=== PATIENT | female | born 1970 | race Caucasian/White ===

== ENCOUNTER 2017-10-01 19:32 | Emergency (ER) | payer BC ==
[~2017-10-01] VITALS: Ht 172.7 cm; Wt 70.3 kg
[~2017-10-01 19:32] MED LIST: NITR-65 PO; PHEN200T27 PO
[2017-10-01] MEDS ORDERED: TOPI50TA37 PO (19:56)
[2017-10-01] MEDS ORDERED: PHEN-483 PO (19:56)
[2017-10-01] MEDS ORDERED: LACTATED RINGERS 1,000 ML IV ONE (20:03)
[2017-10-01 20:24] LABS: BASOPHILS # (AUTO) 0.1 10^3/uL (0.0-0.1); BASOPHILS % (AUTO) 1 % (0-10); EOSINOPHILS # (AUTO) 0.2 10^3/uL (0.0-0.3); EOSINOPHILS % (AUTO) 2 % (0-10); HEMATOCRIT 39 % (35-52); HEMOGLOBIN 13.6 G/DL (11.5-16.0); LYMPHOCYTES # (AUTO) 2.8 X 10^3 (1.0-4.0); LYMPHOCYTES % (AUTO) 33 % (12-44); MEAN CORPUSCULAR HEMOGLOBIN 29 PG (25-34); MEAN CORPUSCULAR HGB CONC 35 G/DL (32-36); MEAN CORPUSCULAR VOLUME 84 FL (80-99); MEAN PLATELET VOLUME 10.8 FL (7.4-10.4); MONOCYTES # (AUTO) 0.7 X 10^3 (0.0-1.0); MONOCYTES % (AUTO) 8 % (0-12); NEUTROPHILS # (AUTO) 4.8 X 10^3 (1.8-7.8); NEUTROPHILS % (AUTO) 56 % (42-75); PLATELET COUNT 388 10^3/uL (130-400); RED BLOOD COUNT 4.67 10^6/uL (4.35-5.85); WHITE BLOOD COUNT 8.7 10^3/uL (4.3-11.0)
[2017-10-01 20:34] LABS: INR 1.1 (0.8-1.4); PROTHROMBIN TIME PATIENT 14.3 SEC (12.2-14.7)
[2017-10-01 20:45] LABS: ALANINE AMINOTRANSFERASE 10 U/L (0-55); ALBUMIN 4.4 GM/DL (3.2-4.5); ALKALINE PHOSPHATASE 66 U/L (40-136); BILIRUBIN,TOTAL 0.4 MG/DL (0.1-1.0); BUN/CREATININE RATIO 15; CALCIUM 9.4 MG/DL (8.5-10.1); CARBON DIOXIDE 20 MMOL/L (21-32); CHLORIDE 110 MMOL/L (98-107); GFR ESTIMATED 54; GLUCOSE 101 MG/DL (70-105); MAGNESIUM 2.4 MG/DL (1.8-2.4); POTASSIUM 3.4 MMOL/L (3.6-5.0); SODIUM 140 MMOL/L (135-145); TOTAL PROTEIN 7.3 GM/DL (6.4-8.2)
[2017-10-01 20:51] LABS: BILIRUBIN,URINE NEGATIVE (NEGATIVE); CLARITY,URINE CLEAR; COLOR,URINE YELLOW; GLUCOSE, URINE (UA) NEGATIVE (NEGATIVE); KETONES,URINE NEGATIVE (NEGATIVE); LEUKOCYTE ESTERASE ,URINE NEGATIVE (NEGATIVE); NITRITE,URINE NEGATIVE (NEGATIVE); PH,URINE 6 (5-9); PROTEIN,URINE NEGATIVE (NEGATIVE); UROBILINOGEN,URINE NORMAL (NORMAL)
[2017-10-01 20:58] LABS: RBC,URINE 0-2 /HPF
--- NOTE | 2017-10-01 21:14 | ED General ---
General Chief Complaint: General Problems/Pain Stated Complaint: DOESN'T FEEL RIGHT/POSSIBLE RX REACTION Nursing Triage Note: PT PRESENTS TO ER WITH COMPLAINT OF MALAISE, THROAT DISCOMFORT, AND SOA. STATES SHE STARTED TAKING TOPAMAX IN AUGUST FOR HEADAHCES. STATES THE TOPAMAX HAS NOT MADE HER FEEL WELL, AND IS NOW WEANING HERSELF OFF. PT ALSO STARTED TAKING PHENTERMINE IN JUNE. Nursing Sepsis Screen: No Definite Risk Source of Information: Patient History of Present Illness Date Seen by Provider: Oct 01, 2017 Time Seen by Provider: 19:50 Initial Comments PT ARRIVES VIA POV FROM HOME STATES SHE IS "NOT FEELING WELL" "DON'T FEEL LIKE MYSELF" STATES SHE "FEELS BENSON FUZZY" "FEEL FOGGY HEADED" "KEEP FORGETTING THINGS" PT WAS STARTED ON PHENTERMINE BY DR. TRACE BENNETT IN [facility], IN JUNE, FOR WEIGHT LOSS. WAS NOT HAVING ANY PROBLEMS WITH IT HAS CHRONIC HEADACHES AND HAVE GOTTEN MORE FREQUENT RECENTLY--REPEATS SEVERAL TIMES SHE IS "UNDER ALOT OF STRESS" AND HAS ALOT OF TENSION HEADACHES--NORMALLY HAS 1 HEADACHE A MONTH STATES SHE WAS STARTED ON TOPAMAX BY DR. BENNETT 7 WEEKS AGO FOR HER HEADACHES-- WAS PRESCRIBED 50 MG BID, BUT SHE STARTED HERSELF OUT TAKING 50 MG AT BEDTIME FOR A MONTH, THEN 2 WEEKS AGO, SHE SELF-ADDED 1/2 PILL IN THE MORNING. PT STATES "IT GOT WORSE" "NOT FEELING WELL" --VAGUE SYMPTOMS OF "FEELING FOGGY HEADED". 1 1/2 WEEKS AGO, SHE CUT HERSELF BACK DOWN TO JUST TAKING THE PM DOSE, AND 3 DAYS AGO, SHE CUT HERSELF DOWN TO 1/2 PILL AT BEDTIME STATES IT WAS CAUSING HER TO HAVE TINGLING IN HER HANDS AND FEET, WHICH WENT AWAY AFTER A MONTH STATES THIS MORNING SHE "DIDN'T FEEL WELL" STATES HER THROAT FELT DRY--"MAY BE DEHYDRATED" AND "FEELING FUZZY" --UNABLE TO GIVE ANY OTHER SPECIFIC SYMPTOMS THEN STATES SHE STARTED HAVING ANXIETY AND "IT FREAKED ME OUT" NO CHEST PAIN NO SHORTNESS OF BREATH NOW, BUT EARLIER THOUGHT SHE FELT SLIGHTLY SHORT OF BREATH NO HEADACHE NOW, BUT HAD A MILD HEADACHE EARLIER TODAY, AND TOOK AN EXCEDRIN AROUND 1300 AND HEADACHE WENT AWAY NO VISION CHANGES NO PARESTHESIAS OR MOTOR DEFICITS NO PALPITATIONS NO NAUSEA/VOMITING NO SWEATS PT STATES SHE HAS NOT HAD ANY CAFFEINE FOR SEVERAL WEEKS. THESE SYMPTOMS ARE NO DIFFERENT TONIGHT PCP: DR. CHARLES--HAS NOT SEEN HIM IN A LONG TIME, AND HAS NOT DISCUSSED ANY OF THESE ISSUES WITH HIM OR WITH DR. BENNETT . [facility]--WEIGHT LOSS Allergies and Home Medications Allergies Coded Allergies: Bee Pollens (Unverified Allergy, Mild, 12/30/08) Shellfish (Unverified Allergy, Mild, 12/30/08) fish oil (Unverified Allergy, Mild, 12/30/08) latex (Unverified Allergy, Mild, 12/30/08) Patient Home Medication List Home Medication List Reviewed: Yes Review of Systems Constitutional: see HPI EENTM: no symptoms reported Respiratory: see HPI Cardiovascular: no symptoms reported Gastrointestinal: no symptoms reported Genitourinary: no symptoms reported : No LMP: Oct 01, 2017 Musculoskeletal: no symptoms reported Skin: no symptoms reported Psychiatric/Neurological: See HPI Hematologic/Lymphatic: No Symptoms Reported Immunological/Allergic: no symptoms reported Past Woxtjfj-Acshsa-Lkyroz Hx Patient Social History Alcohol Use: Denies Use Recreational Drug Use: No Smoking Status: Former Smoker Recent Foreign Travel: No Contact w/Someone Who Travel: No Recent Infectious Disease Expo: No Recent Hopitalizations: No Immunizations Up To Date PED Vaccines UTD: Yes Seasonal Allergies Seasonal Allergies: No Past Medical History Surgeries: Yes (BREAST AUGMENTATION) Breast, Section, Tubal Ligation Respiratory: No Cardiac: No Neurological: No : No 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 Genitourinary: No Gastrointestinal: No Musculoskeletal: No Endocrine: No HEENT: No Cancer: No Psychosocial: No Integumentary: No Blood Disorders: No Physical Exam Vital Signs Vital Signs - First Documented 10/01/17 19:40 Temp 98.0 Pulse 84 Resp 15 B/P (MAP) 147/94 (111) Pulse Ox 100 O2 Delivery Room Air Capillary Refill : Less Than 3 Seconds General Appearance: No Apparent Distress, WD/WN, Anxious HEENT: PERRL/EOMI Neck: Full Range of Motion, Normal Inspection, Non Tender, Supple; No Carotid Bruit, No JVD Respiratory: Normal Breath Sounds, No Accessory Muscle Use, No Respiratory Distress Cardiovascular: Regular Rate, Rhythm, No Edema, No Gallop, No JVD, No Murmur, Normal Peripheral Pulses Gastrointestinal: Normal Bowel Sounds, No Organomegaly, No Pulsatile Mass, Non Tender, Soft Back: Normal Inspection Extremity: Normal Capillary Refill, Normal Inspection, Normal Range of Motion, Non Tender, No Calf Tenderness, No Pedal Edema Neurologic/Psychiatric: Alert, Oriented x3, No Motor/Sensory Deficits, financial services sales representative II- XII Norm as Tested Skin: Normal Color, Warm/Dry, Tattoos/Piercings Progress/Results/Core Measures Suspected Sepsis Recent Fever Within 48 Hours: No Infection Criteria Present: None New/Unexplained Altered Menta: No Sepsis Screen: No Definite Risk SIRS Temperature:98.0 Pulse: 84 Respiratory Rate: 15 Laboratory Tests 10/01/17 20:10: White Blood Count 8.7 Blood Pressure 147 /94 Mean: 111 Laboratory Tests 10/01/17 20:10: Creatinine 1.10, INR Comment 1.1, Platelet Count 388, Total Bilirubin 0.4 Results/Orders Lab Results Laboratory Tests Test 10/01/17 20:10 10/01/17 20:45 Range/Units White Blood Count 8.7 4.3-11.0 10^3/uL Red Blood Count 4.67 4.35-5.85 10^6/uL Hemoglobin 13.6 11.5-16.0 G/DL Hematocrit 39 35-52 % Mean Corpuscular Volume 84 80-99 FL Mean Corpuscular Hemoglobin 29 25-34 PG Mean Corpuscular Hemoglobin Concent 35 32-36 G/DL Red Cell Distribution Width 14.0 10.0-14.5 % Platelet Count 388 130-400 10^3/uL Mean Platelet Volume 10.8 H 7.4-10.4 FL Neutrophils (%) (Auto) 56 42-75 % Lymphocytes (%) (Auto) 33 12-44 % Monocytes (%) (Auto) 8 0-12 % Eosinophils (%) (Auto) 2 0-10 % Basophils (%) (Auto) 1 0-10 % Neutrophils # (Auto) 4.8 1.8-7.8 X 10^3 Lymphocytes # (Auto) 2.8 1.0-4.0 X 10^3 Monocytes # (Auto) 0.7 0.0-1.0 X 10^3 Eosinophils # (Auto) 0.2 0.0-0.3 10^3/uL Basophils # (Auto) 0.1 0.0-0.1 10^3/uL Prothrombin Time 14.3 12.2-14.7 SEC INR Comment 1.1 0.8-1.4 Activated Partial Thromboplast Time 29 24-35 SEC Sodium Level 140 135-145 MMOL/L Potassium Level 3.4 L 3.6-5.0 MMOL/L Chloride Level 110 H 98-107 MMOL/L Carbon Dioxide Level 20 L 21-32 MMOL/L Anion Gap 10 5-14 MMOL/L Blood Urea Nitrogen 16 7-18 MG/DL Creatinine 1.10 0.60-1.30 MG/DL Estimat Glomerular Filtration Rate 54 BUN/Creatinine Ratio 15 Glucose Level 101 70-105 MG/DL Calcium Level 9.4 8.5-10.1 MG/DL Magnesium Level 2.4 1.8-2.4 MG/DL Total Bilirubin 0.4 0.1-1.0 MG/DL Aspartate Amino Transf (AST/SGOT) 11 5-34 U/L Alanine Aminotransferase (ALT/SGPT) 10 0-55 U/L Alkaline Phosphatase 66 40-136 U/L Troponin I < 0.30 <0.30 NG/ML B-Type Natriuretic Peptide 32.2 <100.0 PG/ML Total Protein 7.3 6.4-8.2 GM/DL Albumin 4.4 3.2-4.5 GM/DL TSH [place] Testing 2.70 0.35-4.94 UIU/ML Urine Color YELLOW Urine Clarity CLEAR Urine pH 6 5-9 Urine Specific [place] 1.020 1.016-1.022 Urine Protein NEGATIVE NEGATIVE Urine Glucose (UA) NEGATIVE NEGATIVE Urine Ketones NEGATIVE NEGATIVE Urine Nitrite NEGATIVE NEGATIVE Urine Bilirubin NEGATIVE NEGATIVE Urine Urobilinogen NORMAL NORMAL MG/DL Urine Leukocyte Esterase NEGATIVE NEGATIVE Urine RBC (Auto) 1+ H NEGATIVE Urine RBC 0-2 /HPF Urine WBC NONE /HPF Urine Squamous Epithelial Cells 2-5 /HPF Urine Crystals NONE /LPF Urine Bacteria NONE /HPF Urine Casts NONE /LPF Urine Mucus NEGATIVE /LPF Urine Culture Indicated NO My Orders Orders - YOANA DURAN DO Saline Lock/Iv-Start (10/01/17 20:02) Urine Bedside (10/01/17 20:02) Ekg Tracing (10/01/17 20:02) Monitor-Rhythm Ecg Trace Only (10/01/17 20:02) BNP (10/01/17 20:02) Cbc With Automated Diff (10/01/17 20:02) Comprehensive Metabolic Panel (10/01/17 20:02) Magnesium (10/01/17 20:02) Protime With Inr (10/01/17 20:02) Partial Thromboplastin Time (10/01/17 20:02) Thyroid Analyzer (10/01/17 20:02) Troponin I (10/01/17 20:02) Ua Culture If Indicated (10/01/17 20:02) Chest Pa/Lat (2 View) (10/01/17 20:02) Saline Lock/Iv-Start (10/01/17 20:03) Lactated Ringers (Lr 1000 Ml Iv Solution (10/01/17 20:03) Potassium Chloride (Tablet) (K Dur Table (10/01/17 21:15) Medications Given in ED Current Medications Medications Dose Ordered Sig/Ines Route Start Time Stop Time Status Last Admin Dose Admin Lactated Ringer's 1,000 ml @ 0 mls/hr Q0M ONCE IV 10/01/17 20:03 10/01/17 20:05 DC 10/01/17 20:16 1,000 MLS/HR Potassium Chloride 20 meq ONCE ONCE PO 10/01/17 21:15 10/01/17 21:20 DC 10/01/17 21:32 20 MEQ Vital Signs/I&O 10/01/17 10/01/17 19:40 22:00 Temp 98.0 98.0 Pulse 84 84 Resp 15 15 B/P (MAP) 147/94 (111) 135/90 (111) Pulse Ox 100 100 O2 Delivery Room Air 10/02/17 00:00 Intake Total 1000 ml Balance 1000 ml Capillary Refill : Less Than 3 Seconds Blood Pressure Mean: 111 Progress Note : Progress Note NO SYMPTOMS DURING ER STAY OFFERED TO DO CT SCAN OF HEAD AND PT DECLINES--STATES SHE HAS HAD FAIRLY EXTENSIVE WORK UP'S IN THE PAST FOR HEADACHES, AND STATES HEADACHES ARE ALL TENSION HEADACHES AND STRESS RELATED AND SHE IS UNDER ALOT OF STRESS ECG Initial ECG Impression Date: Oct 01, 2017 Initial ECG Impression Time: 20:12 Initial ECG Rate: 73 Initial ECG Rhythm: Normal Sinus Initial ECG Comparisson: No Previous ECG Available Diagnostic Imaging Comments CXR--NO ACUTE PROCESS, PER RADIOLOGIST REPORT @ 2136 Reviewed: Reviewed by Me Departure Impression Primary Impression: General medical exam Additional Impressions: MILD HYPOKALEMIA POSSIBLE ADVERSE MEDICATION REACTION Anxiety Disposition: 01 HOME, SELF-CARE Condition: Stable Departure-Patient Inst. Referrals: MAJO CHARLES MD (PCP/Family) Primary Care Physician Patient Instructions: Adverse Drug Reactions, Adult (DC), Hypokalemia (DC) Add. Discharge Instructions: TAKE YOUR MEDICATIONS PRESCRIBED FOLLOW UP WITH DR. CHARLES AND DR. BENNETT NEXT WEEK FOR FURTHER CARE All discharge instructions reviewed with patient and/or family. Voiced understanding. YOANA DURAN DO Oct 01, 2017 21:14
[2017-10-01] MEDS ORDERED: KCL 20 MEQ TAB (K-DUR) PO ONE (21:15)
--- NOTE | 2017-10-01 21:25 | Diagnostic Imaging Report ---
INDICATION: Respiratory infection PA and lateral chest Heart size and pulmonary vascularity are normal. Lungs are clear. There are no effusions or pneumothoraces. Patient has bilateral breast implants. There is scoliosis of the thoracic spine convex to the right. IMPRESSION: No acute abnormalities in the chest Dictated by: Dictated on workstation # [id number]
[2017-10-01 22:00] VITALS: BP 135/90
== END 2017-10-01 22:00 | disposition home or self-care (01) ==
LOC: EDUNIT# 19:32 → ER 19:36
DX: E87.6 Hypokalemia (principal); F41.9 Anxiety disorder, unspecified; Z87.891 Personal history of nicotine dependence; Z98.51 Tubal ligation status; Z87.59 Personal history of other complications of pregnancy, childbirth and the puerperium; Z98.890 Other specified postprocedural states; Z98.82 Breast implant status; Z91.040 Latex allergy status
CPT/HCPCS: 36415; 71046; 80053; 81000; 83735; 83880; 84443; 84484; 84703; 85025; 85610; 85730; 93005; 93041; 96360

== ENCOUNTER 2020-08-22 04:53 | Emergency (ER) | payer BC ==
[~2020-08-22] VITALS: Ht 172.7 cm; Wt 90.0 kg
[~2020-08-22 04:53] MED LIST changes: +PHEN-483 PO; +TOPI50TA37 PO
--- NOTE | 2020-08-22 05:24 | ED General ---
General Stated Complaint: RT ARM PAIN,SOB Source of Information: Patient Exam Limitations: No Limitations (MATHEUS LIRA MD) History of Present Illness Date Seen by Provider: Aug 22, 2020 Time Seen by Provider: 05:20 Initial Comments Patient is a 50-year-old female who presents to the emergency department with multiple somatic complaints. Patient states that she has had intermittent episodes of "dizziness" for the last 2 weeks. Patient has intermittent episodes of diaphoresis with the dizziness. Patient states that she also woke up this morning around 4 AM with right hand pain, right arm heaviness, nausea and diaphoresis. Patient states that she was recently seen at a local clinic and had a Covid and an influenza test both of which were negative. Patient states that she has had body aches and generalized fatigue and weakness. She states she just does not feel good. Patient became concerned this morning that something more serious was happening when she noticed that she was having this arm heaviness and hand pain. The hand pain in her right hand woke her from sleep. States she has had a little bit of congestion. No shortness of breath no actual chest pain. Patient thinks she might be going through menopause as her last menstrual cycle was approximately 8 months and then 8 months prior to that. Her mother was in her late 40s when she went through menopause. Timing/Duration: 1-3 Hours Severity: Mild Associated Systoms: Diaphoresis, Nausea/Vomiting (MATHEUS LIRA MD) Allergies and Home Medications Allergies Coded Allergies: Bee Pollens (Unverified Allergy, Mild, 12/30/08) Shellfish (Unverified Allergy, Mild, 12/30/08) fish oil (Unverified Allergy, Mild, 12/30/08) latex (Unverified Allergy, Mild, 12/30/08) Patient Home Medication List Home Medication List Reviewed: Yes (MATHEUS LIRA MD) Review of Systems Review of Systems Constitutional: see HPI EENTM: nose congestion Respiratory: no symptoms reported; No short of breath Cardiovascular: no symptoms reported; No chest pain Gastrointestinal: nausea Genitourinary: no symptoms reported Musculoskeletal: joint pain (right hand) Skin: other (diaphoresis) Psychiatric/Neurological: Anxiety (MATHEUS LIRA MD) All Other Systems Reviewed Negative Unless Noted: Yes (MATHEUS LIRA MD) Past Eioekvf-Uwmack-Ktqlmp Hx Patient Social History Recent Hopitalizations: No (MATHEUS LIRA MD) Immunizations Up To Date PED Vaccines UTD: Yes (MATHEUS LIRA MD) Seasonal Allergies Seasonal Allergies: No (MATHEUS LIRA MD) Past Medical History Surgeries: Yes (BREAST AUGMENTATION) Breast, Section, Tubal Ligation Respiratory: No Cardiac: No Neurological: No 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 oz. 70.789377ld; BMI Method:Stated General Appearance: No Apparent Distress, WD/WN, Anxious (mildly) Eyes: Bilateral Eye Normal Inspection, Bilateral Eye PERRL, Bilateral Eye EOMI HEENT: PERRL/EOMI Neck: Normal Inspection, Non Tender, Supple Respiratory: Lungs Clear, Normal Breath Sounds, No Accessory Muscle Use, No Respiratory Distress Cardiovascular: Regular Rate, Rhythm, No Murmur Gastrointestinal: Normal Bowel Sounds, Non Tender, Soft Back: Normal Inspection Extremity: Normal Inspection, Normal Range of Motion, Non Tender, No Pedal Edema Neurologic/Psychiatric: Alert, Oriented x3, No Motor/Sensory Deficits, Normal Mood/Affect (MATHEUS LIRA MD) Progress/Results/Core Measures Suspected Sepsis SIRS Temperature: Pulse: Respiratory Rate: Blood Pressure / Mean: (MATHEUS LIRA MD) Results/Orders Lab Results Laboratory Tests Test 08/22/20 05:40 Range/Units White Blood Count 7.9 4.3-11.0 10^3/uL Red Blood Count 4.77 3.80-5.11 10^6/uL Hemoglobin 13.2 11.5-16.0 g/dL Hematocrit 41 35-52 % Mean Corpuscular Volume 86 80-99 fL Mean Corpuscular Hemoglobin 28 25-34 pg Mean Corpuscular Hemoglobin Concent 32 32-36 g/dL Red Cell Distribution Width 13.4 10.0-14.5 % Platelet Count 364 130-400 10^3/uL Mean Platelet Volume 10.1 9.0-12.2 fL Immature Granulocyte % (Auto) 0 % Neutrophils (%) (Auto) 58 42-75 % Lymphocytes (%) (Auto) 30 12-44 % Monocytes (%) (Auto) 7 0-12 % Eosinophils (%) (Auto) 4 0-10 % Basophils (%) (Auto) 1 0-10 % Neutrophils # (Auto) 4.6 1.8-7.8 10^3/uL Lymphocytes # (Auto) 2.4 1.0-4.0 10^3/uL Monocytes # (Auto) 0.6 0.0-1.0 10^3/uL Eosinophils # (Auto) 0.3 0.0-0.3 10^3/uL Basophils # (Auto) 0.1 0.0-0.1 10^3/uL Immature Granulocyte # (Auto) 0.0 0.0-0.1 10^3/uL Sodium Level 142 135-145 MMOL/L Potassium Level 3.8 3.6-5.0 MMOL/L Chloride Level 108 H 98-107 MMOL/L Carbon Dioxide Level 25 21-32 MMOL/L Anion Gap 9 5-14 MMOL/L Blood Urea Nitrogen 15 7-18 MG/DL Creatinine 1.00 0.60-1.30 MG/DL Estimat Glomerular Filtration Rate 59 BUN/Creatinine Ratio 15 Glucose Level 107 H 70-105 MG/DL Calcium Level 9.1 8.5-10.1 MG/DL Total Creatine Kinase 44 29-168 U/L Creatine Kinase MB 0.8 <6.6 NG/ML Troponin I < 0.028 <0.028 NG/ML Serum Test, Qualitative NEGATIVE NEGATIVE (AMILCAR JACK MD) Vital Signs/I&O 08/22/20 05:10 Temp 36.4 Pulse 83 Resp 18 B/P (MAP) 124/88 (100) Pulse Ox 100 O2 Delivery Room Air (AMILCAR JACK MD) Vital Signs/I&O Capillary Refill : (MATHEUS LIRA MD) Progress Note : Time: 06:42 Progress Note I assumed care of this patient from Dr. Lira at shift change. Labs were reviewed. Patient reiterated her history. She was reexamined and found to have no focal neurologic deficits. Tinel's test for carpal tunnel was negative but Phalen's test was positive. Heart exhibited regular rate and rhythm. Lungs were clear to auscultation. I have encouraged her to follow-up with her primary care provider and possibly her women's health provider as well to discuss her symptoms. We discussed return precautions which would include but are not limited to chest pain and shortness of breath. (AMILCAR JACK MD) ECG Initial ECG Impression Date: Aug 22, 2020 Initial ECG Impression Time: 05:40 Initial ECG Rate: 72 Initial ECG Rhythm: Normal Sinus Initial ECG Intervals: Normal Initial ECG Impression: Nonspecific Changes (MATHEUS LIRA MD) Diagnostic Imaging Diagonstic Imaging: Xray Plain Films/CT/US/NM/MRI: chest Comments NAME: [facility] REC#: [id number] PT STATUS: REG ER : 1970 PHYSICIAN: MATHEUS LIRA MD ADMIT DATE: 08/22/20/ER Draft Date of Exam:08/22/20 CHEST 1 VIEW, AP/PA ONLY INDICATION: Diaphoresis, nausea, right shoulder pain. Portable chest 6:05 AM FINDINGS: Heart size and pulmonary vascularity are normal. Lungs are clear. There are no effusions or pneumothoraces. IMPRESSION: Negative chest. Dictated on workstation # [id number] Dict: 08/22/20 0616 Trans: 08/22/20 0618 [id number] Interpreted by: REGINA MCKINNON MD Electronically signed by: Reviewed: Reviewed by Me (AMILCAR JACK MD) Departure Impression Primary Impression: Right hand paresthesia Additional Impressions: Diaphoresis Lightheadedness Disposition: 01 HOME, SELF-CARE Condition: Improved Departure-Patient Inst. Decision time for Depature: 06:43 (AMILCAR JACK MD) Referrals: NO,LOCAL PHYSICIAN (PCP/Family) Primary Care Physician Patient Instructions: Carpal Tunnel Exercises, Carpal Tunnel Syndrome, Perimenopause Add. Discharge Instructions: Follow-up with your primary care provider and business intelligence director as soon as possible to discuss your symptoms. Your hand and forearm symptoms may be related to carpal tunnel syndrome. This may be evaluated further by your primary care provider. In the meantime, try using a cushioned wrist elevator when you type and consider using a wrist brace. Avoid unnecessary repetitive movements of the wrist. Pain may be treated with Tylenol (acetaminophen) and/or NSAIDs such as ibuprofen. Call with questions or concerns. Return to the emergency room if you have worsening symptoms, especially if you develop shortness of breath or chest pain. MATHEUS LIRA MD Aug 22, 2020 05:24 AMILCAR JACK MD Aug 22, 2020 06:47
[2020-08-22 05:53] LABS: BASOPHILS # (AUTO) 0.1 10^3/uL (0.0-0.1); BASOPHILS % (AUTO) 1 % (0-10); EOSINOPHILS # (AUTO) 0.3 10^3/uL (0.0-0.3); EOSINOPHILS % (AUTO) 4 % (0-10); HEMATOCRIT 41 % (35-52); HEMOGLOBIN 13.2 g/dL (11.5-16.0); LYMPHOCYTES # (AUTO) 2.4 10^3/uL (1.0-4.0); LYMPHOCYTES % (AUTO) 30 % (12-44); MEAN CORPUSCULAR HEMOGLOBIN 28 pg (25-34); MEAN CORPUSCULAR HGB CONC 32 g/dL (32-36); MEAN CORPUSCULAR VOLUME 86 fL (80-99); MEAN PLATELET VOLUME 10.1 fL (9.0-12.2); MONOCYTES # (AUTO) 0.6 10^3/uL (0.0-1.0); MONOCYTES % (AUTO) 7 % (0-12); NEUTROPHILS # (AUTO) 4.6 10^3/uL (1.8-7.8); NEUTROPHILS % (AUTO) 58 % (42-75); PLATELET COUNT 364 10^3/uL (130-400); WHITE BLOOD COUNT 7.9 10^3/uL (4.3-11.0)
[2020-08-22 06:03] LABS: CHLORIDE 108 MMOL/L (98-107); POTASSIUM 3.8 MMOL/L (3.6-5.0); SODIUM 142 MMOL/L (135-145)
[2020-08-22 06:04] LABS: CALCIUM 9.1 MG/DL (8.5-10.1)
[2020-08-22 06:05] LABS: GLUCOSE 107 MG/DL (70-105)
[2020-08-22 06:06] LABS: CARBON DIOXIDE 25 MMOL/L (21-32)
[2020-08-22 06:09] LABS: BUN/CREATININE RATIO 15; GFR ESTIMATED 59
[2020-08-22 06:11] LABS: CREATINE KINASE 44 U/L (29-168)
[2020-08-22 06:17] LABS: CREATINE KINASE MB 0.8 NG/ML (<6.6)
--- NOTE | 2020-08-22 06:19 | Diagnostic Imaging Report ---
INDICATION: Diaphoresis, nausea, right shoulder pain. Portable chest 6:05 AM FINDINGS: Heart size and pulmonary vascularity are normal. Lungs are clear. There are no effusions or pneumothoraces. IMPRESSION: Negative chest. Dictated by: Dictated on workstation # [id number]
[2020-08-22 06:53] VITALS: BP 125/88
== END 2020-08-22 06:53 | disposition home or self-care (01) ==
LOC: EDUNIT# 04:53 → ER 04:58
DX: R20.2 Paresthesia of skin (principal); R61 Generalized hyperhidrosis; R42 Dizziness and giddiness; F41.9 Anxiety disorder, unspecified; Z91.040 Latex allergy status
CPT/HCPCS: 36415; 71045; 80048; 82550; 82553; 84484; 84703; 85025; 93005